=== PATIENT | female | born 1950 | race African-American/Black ===

== ENCOUNTER → 2022-12-25 12:41 | Outpatient (CLI) | payer OTHER, SELFPAY ==
--- NOTE | ~2022-12-25 | XR_ITS ---
Lumbosacral Spine: AP and lateral views Clinical History: Pain Findings: The normal lordotic curve is maintained. The vertebral bodies and posterior elements are i ntact. The intervertebral disc spaces are preserved. Facet joint arthropathy is present throughout t he lumbar spine. The sacroiliac joints are normally outlined. Impression: Diffuse facet joint degenerative changes. Reviewed, dictated and finalized at location . Impression: Diffuse facet joint degenerative changes.
== END ==
PROVIDERS: PCP Nurse Practitioner Family; Visit Provider Nurse Practitioner Family
DX: M51.36 Other intervertebral disc degeneration, lumbar region (principal); M54.50 Low back pain, unspecified; G89.29 Other chronic pain
CPT/HCPCS: 72100